=== PATIENT | female | born 1945 | race Caucasian/White ===

== ENCOUNTER 2017-01-02 10:40 | Emergency (ER) | payer MEDICARE ==
--- NOTE | 2017-01-02 11:12 | Emergency Department Record ---
History of Present Illness - General Chief Complaint: Difficulty Breathing Stated Complaint: RADHA Time Seen by Provider: 01/02/17 10:44 Source: Patient, RN notes reviewed Mode of Arrival: Ambulatory - History of Present Illness Initial Comments: congestion and cough for 3 days and worse her sister told her to go to the ED because of concerns for pneumonia. Sister(Natasha) states she felt weak and SOB and history of memory problems. Patient states hot and cold last week. Dr. Morales is her primary Dr. and she had the flu shot in jul. 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 March 2016 she had NC and two stents placed. No chest pain now and she has a cough in the ED. She was on antibiotics amoxil BID and finished them one week ago. [facility] [place] Onset/Timin -: Month(s) Severity: Moderate Worsens With: Exertion, Movement Associated Symptoms: Cough, Other - Related Data Home Oxygen Therapy: No Home Medications Medication Instructions Recorded Confirmed Last Taken Atorvastatin Calcium [Atorvastatin 40 mg PO DAILY 01/02/17 01/02/17 01/02/17 Calcium] Carvedilol [Carvedilol] 3.125 mg PO BID 01/02/17 01/02/17 01/02/17 Clopidogrel Bisulfate [Plavix] 75 mg PO DAILY 01/02/17 01/02/17 01/02/17 Lisinopril [Lisinopril] 5 mg PO DAILY 01/02/17 01/02/17 01/02/17 Pantoprazole Sodium [Protonix] 40 mg PO DAILY 01/02/17 01/02/17 01/02/17 Previous Rx's Medication Instructions Recorded Doxycycline Hyclate [Doxycycline] 100 mg PO BID #20 cap 01/02/17 Allergies Allergy/AdvReac Type Severity Reaction Status Date / Time No Known Drug Allergies Allergy Verified 01/02/17 10:48 Travel Screening - Travel/Exposure Within Last 30 Days Have you traveled within the last 30 days?: No - Travel/Exposure Within Last Year Have you traveled outside the [place] in the last year?: No - Additonal Travel Details Have you been exposed to anyone with a communicable illness?: No - Travel Symptoms Symptom Screening: None Past Medical History - SOCIAL HISTORY Smoking Status: Former smoker Alcohol Use: None Drug Use: None - RESPIRATORY Hx Respiratory Disorders: No - CARDIOVASCULAR Hx Cardio Disorders: Yes Hx Abnormal EKG: Yes Hx Cardiac Cath: Yes (pt not sure) Hx Heart Attack: Yes - NEURO Hx Neuro Disorders: Yes Hx CVA: Yes (07/2016) - GI Hx GI Disorders: Yes Hx Reflux: Yes - Hx Genitourinary Disorders: No - ENDOCRINE Hx Endocrine Disorders: No Hx Diabetes: No Hx Thyroid Disease: No - MUSCULOSKELETAL Hx Musculoskeletal Disorders: Yes Hx Arthritis: Yes - PSYCH Hx Psych Problems: Yes Hx Anxiety: Yes Hx Depression: Yes - HEMATOLOGY/ONCOLOGY Hx Hematology/Oncology Disorders: No Hx Anemia: No Hx Blood Disorders: No Family Medical History Any Significant Family History?: Yes Hx Heart Disease: Father, Mother, Grandparents Hx Stroke: Grandparents Course Vital Signs 01/02/17 10:50 Temperature 98.8 F Pulse Rate 60 Respiratory 24 Rate Blood Pressure 157/101 Pulse Ox 97 Medical Decision Making - Data Complexity MDM Data: Labs Ordered and/or Reviewed, X-Ray Ordered and/or Reviewed (No acute changes) - Lab Data Result diagrams: 01/02/17 10:55 01/02/17 10:55 Disposition Clinical Impression: Acute bronchitis Qualifiers: Bronchitis organism: unspecified organism Qualified Code(s): J20.9 - Acute bronchitis, unspecified Disposition: Home, Self-Care Condition: (1) Good Instructions: Acute Bronchitis (ED) Additional Instructions: follow up with Dr. Morales drink fluids Prescriptions: Doxycycline Hyclate [Doxycycline] 100 mg PO BID #20 cap Forms: Patient Portal Access Time of Disposition: 12:12
[2017-01-02] MEDS ORDERED: 0.9 % SODIUM CHLORIDE 1000ML 1,000 ML IV PRN (11:15)
[2017-01-02 11:25] LABS: BASO % 0.2 % (0-6); GRAN % 63.4 % (47-80); HEMATOCRIT 40.5 % (35.0-47.0); HEMOGLOBIN 13.2 gm/dl (11.6-16.0); LYMPH % 21.5 % (16-45); MEAN CORPUSCULAR HEMOGLOBIN 28.7 pg (27-33); MEAN CORPUSCULAR HGB CONC 32.6 g/dl (32-36); MEAN PLATELET VOLUME 10.5 fl (7.4-10.4); MONO % 9.9 % (0-9); PLATELET COUNT 292 K/uL (130-400); RED CELL DISTRIBUTION WIDTH 14.6 % (11.5-14.5); WHITE BLOOD COUNT W/O DIFF 5.8 K/uL (4.2-12.2)
[2017-01-02 11:39] LABS: ANION GAP 14.5 (7-16); BLOOD UREA NITROGEN 14 mg/dL (7-17); CARBON DIOXIDE 24.5 mmol/L (22-30); CREATININE 0.9 mg/dL (0.52-1.04); EST GLOMERULAR FILTRATION RATE > 60 ml/min; GLUCOSE,RANDOM 139 mg/dL (70-110)
--- NOTE | 2017-01-07 10:33 | RADIOLOGY REPORT ---
EXAM: CHEST, TWO VIEWS HISTORY: COUGH. TECHNIQUE: Upright PA and lateral views of the chest were obtained. Comparison: Portable chest dated 04/07/16. CT angiogram of the chest dated 04/25. FINDINGS: The heart projects borderline to mildly enlarged. No pulmonary venous hypertension is seen. The thoracic aorta is tortuous and atherosclerotic. A large hiatal hernia is identified. An air fluid level is noted within the intrathoracic portion of the stomach. The lungs and pleural spaces are clear. Mild degenerative changes of the visualized spine. IMPRESSION: 1. NO RADIOGRAPHIC EVIDENCE OF ACUTE CARDIOPULMONARY DISEASE. 2. BORDERLINE TO MILD CARDIOMEGALY WITHOUT PULMONARY VENOUS HYPERTENSION. TORTUOUS ATHEROSCLEROTIC THORACIC AORTA. 3. LARGE HIATAL HERNIA REDEMONSTRATED. JOB NUMBER: [id number] [facility]
== END 2017-01-02 12:29 | disposition home or self-care (01) ==
LOC: ER 10:40
DX: J20.9 Acute bronchitis, unspecified (principal); R06.02 Shortness of breath; I25.2 Old myocardial infarction; Z86.73 Personal history of transient ischemic attack (TIA), and cerebral infarction without residual deficits; Z87.891 Personal history of nicotine dependence
CPT/HCPCS: 71020; 80048; 85025; 99283; 99284

== ENCOUNTER 2017-06-26 18:13 | Emergency (ER) | payer MEDICARE ==
[2017-06-26] MEDS ORDERED: KETOROLAC 60 MG/2 ML VIAL IM STA (18:32)
--- NOTE | 2017-06-26 18:38 | Emergency Department Record ---
History of Present Illness - General Chief complaint: Extremity Problem Stated complaint: TINGLING IN L ARM Time Seen by Provider: 06/26/17 18:29 Source: Patient, RN notes reviewed Mode of Arrival: Ambulatory - History of Present Illness Initial comments: left arm pain after riding her lawnmower and painful to palpation and moving the left arm makes it worse Onset/Timin -: Minutes(s) Location: Left, Arm History of Same: No Severity scale (1-10): 10 Quality: Other Consistency: Constant Improves with: Nothing Worsens with: Exertion Associated Symptoms: Denies other symptoms - Related Data Home Medications Medication Instructions Recorded Confirmed Last Taken Carvedilol [Carvedilol] 3.125 mg PO BID 01/02/17 06/26/17 06/26/17 Clopidogrel Bisulfate [Plavix] 75 mg PO DAILY 01/02/17 06/26/17 06/26/17 Lisinopril [Lisinopril] 5 mg PO DAILY 01/02/17 06/26/17 06/26/17 Pantoprazole Sodium [Protonix] 40 mg PO DAILY 01/02/17 06/26/17 06/26/17 Aspirin [Adult Low Dose Aspirin EC] 81 mg PO DAILY 06/05/17 06/26/17 06/26/17 Atorvastatin Calcium [Atorvastatin 40 mg PO QHS 06/05/17 06/26/17 06/26/17 Calcium] Ferrous Sulfate 325 mg PO DAILY 06/05/17 06/26/17 06/26/17 Previous Rx's Medication Instructions Recorded Naproxen [Naprosyn] 500 mg PO Q12H #30 tab 06/26/17 Allergies Allergy/AdvReac Type Severity Reaction Status Date / Time No Known Drug Allergies Allergy Verified 06/26/17 18:16 Travel Screening - Travel/Exposure Within Last 30 Days Have you traveled within the last 30 days?: No - Travel/Exposure Within Last Year Have you traveled outside the [place] in the last year?: No - Additonal Travel Details Have you been exposed to anyone with a communicable illness?: No - Travel Symptoms Symptom Screening: None Review of Systems Reviewed: No additional complaints except as noted below Constitutional: Reports: As per HPI. Denies: Chills, Fever, Malaise, Night sweats, Weakness, Weight change Eyes: Reports: As per HPI. Denies: Eye discharge, Eye pain, Photophobia, Vision change ENT: Reports: As per HPI. Denies: Congestion, Dental pain, Ear pain, Epistaxis , Hearing loss, Throat pain Respiratory: Reports: As per HPI. Denies: Cough, Dyspnea, Hemoptysis, Stridor, Wheezes Cardiovascular: Reports: As per HPI. Denies: Arrhythmia, Chest pain, Dyspnea on exertion, Edema, Murmurs, Orthopnea, Palpitations, Paroxysmal nocturnal dyspnea, Rheumatic Fever, Syncope Endocrine: Reports: As per HPI. Denies: Fatigue, Heat or cold intolerance, Polydipsia, Polyuria Gastrointestinal: Reports: As per HPI. Denies: Abdominal pain, Constipation, Diarrhea, Hematemesis, Hematochezia, Melena, Nausea, Vomiting Genitourinary: Reports: As per HPI. Denies: Abnormal menses, Discharge, Dyspareunia, Dysuria, Frequency, Hematuria, Incontinence, Retention, Urgency Musculoskeletal: Reports: As per HPI. Denies: Arthralgia, Back pain, Gout, Joint swelling, Myalgia, Neck pain Skin: Reports: As per HPI. Denies: Bruising, Change in color, Change in hair/ nails, Lesions, Pruritus, Rash Neurological: Reports: As per HPI. Denies: Abnormal gait, Confusion, Headache, Numbness, Paresthesias, Seizure, Tingling, Tremors, Vertigo, Weakness Psychiatric: Reports: As per HPI. Denies: Anxiety, Auditory hallucinations, Depression, Homicidal thoughts, Suicidal thoughts, Visual hallucinations Hematological/Lymphatic: Reports: As per HPI. Denies: Anemia, Blood Clots, Easy bleeding, Easy bruising, Swollen glands Past Medical History - SOCIAL HISTORY Smoking Status: Former smoker Alcohol Use: None Drug Use: None - RESPIRATORY Hx Respiratory Disorders: No - CARDIOVASCULAR Hx Cardio Disorders: Yes Hx Abnormal EKG: Yes Hx Cardiac Cath: Yes (pt not sure) Hx Heart Attack: Yes - NEURO Hx Neuro Disorders: Yes Hx CVA: Yes (07/2016) - GI Hx GI Disorders: Yes Hx Reflux: Yes - Hx Genitourinary Disorders: No - ENDOCRINE Hx Endocrine Disorders: No Hx Diabetes: No Hx Thyroid Disease: No - MUSCULOSKELETAL Hx Musculoskeletal Disorders: Yes Hx Arthritis: Yes Comment:: sciatic nerve "problem" - PSYCH Hx Psych Problems: Yes Hx Anxiety: Yes Hx Depression: Yes - HEMATOLOGY/ONCOLOGY Hx Hematology/Oncology Disorders: No Hx Anemia: No Hx Blood Disorders: No Family Medical History Any Significant Family History?: Yes Hx Heart Disease: Father, Mother, Grandparents Hx Stroke: Grandparents Physical Exam - General General Appearance: Alert, Oriented x3, Cooperative, No acute distress - Head Head exam: Normal inspection - Eye Eye exam: Normal appearance, PERRL Pupils: Normal accommodation - ENT ENT exam: Normal exam, Mucous membranes moist, Normal external ear exam, Normal orophraynx, TM's normal bilaterally Ear exam: Normal external inspection. negative: External canal tenderness Nasal Exam: Normal inspection. negative: Discharge, Sinus tenderness Mouth exam: Normal external inspection, Tongue normal Teeth exam: Normal inspection. negative: Dental caries Throat exam: Normal inspection. negative: Tonsillar erythema, Tonsillar exudate - Neck Neck exam: Normal inspection, Full ROM. negative: Tenderness - Respiratory Respiratory exam: Normal lung sounds bilaterally. negative: Respiratory distress - Cardiovascular Cardiovascular Exam: Regular rate, Normal rhythm, Normal heart sounds - GI/Abdominal GI/Abdominal exam: Soft, Normal bowel sounds. negative: Tenderness - Rectal Rectal exam: Deferred - exam: Deferred - Extremities Extremities exam: Normal inspection, Normal capillary refill, Tenderness ( painful left shoulder and reproducible with palpation of the shoulder and motion of the shoulder) - Back Back exam: Reports: Normal inspection, Full ROM. Denies: Muscle spasm, Rash noted, Tenderness - Neurological Neurological exam: Alert, Normal gait, Oriented X3, Reflexes normal - Psychiatric Psychiatric exam: Normal affect, Normal mood - Skin Skin exam: Dry, Intact, Normal color, Warm Course Vital Signs 06/26/17 18:20 Temperature 98.3 F Pulse Rate 59 L Respiratory 20 Rate Blood Pressure 198/122 Pulse Ox 97 Disposition Clinical Impression: Strain of shoulder, left Qualifiers: Encounter type: initial encounter Qualified Code(s): S46.912A - Strain of unspecified muscle, fascia and tendon at shoulder and upper arm level, left arm , initial encounter Bursitis Qualifiers: Bursitis location: shoulder Laterality: left Qualified Code(s): M75.52 - Bursitis of left shoulder Disposition: Home, Self-Care Condition: (1) Good Instructions: Musculoskeletal Pain (ED), Shoulder Bursitis (ED) Additional Instructions: follow up with Dr. Alvarez in one week heat to shoulder No driving Prescriptions: Naproxen [Naprosyn] 500 mg PO Q12H #30 tab.dr Forms: Patient Portal Access Time of Disposition: 18:42 Quality - Quality Measures Quality Measures: N/A - Blood Pressure Screening Does Patient Have Any of the Following: Active Dx of HTN Blood Pressure Classification: Hypertensive Reading Systolic Measurement: 198 Diastolic Measurement: 122 Screening for High Blood Pressure: Patient Exclusion, Hx of HTN [[id number]]
== END 2017-06-26 19:03 | disposition home or self-care (01) ==
LOC: ER 18:13
DX: S46.912A Strain of unspecified muscle, fascia and tendon at shoulder and upper arm level, left arm, initial encounter (principal); M75.52 Bursitis of left shoulder; X50.9XXA Other and unspecified overexertion or strenuous movements or postures, initial encounter; Y93.H9 Activity, other involving exterior property and land maintenance, building and construction; I25.2 Old myocardial infarction
CPT/HCPCS: 96372; 99283; J1885